=== PATIENT | female | born 1970 | race Caucasian/White ===

== ENCOUNTER 2019-10-11 06:00 | Outpatient (RCR) | payer OTHER, SELFPAY | END 2019-11-10 00:01 | LOC: MPT 06:00 | PROVIDERS: Family Provider Nurse Practitioner; Visit Provider Nurse Practitioner | DX: M25.511 Pain in right shoulder (principal) | CPT/HCPCS: 97110; 97140; G0283 ==

== ENCOUNTER 2019-11-11 13:30 | Outpatient (RCR) | payer OTHER, SELFPAY | END 2019-12-11 23:59 | disposition home or self-care (01) | LOC: MPT 13:30 | PROVIDERS: Family Provider Nurse Practitioner; PCP Nurse Practitioner; Visit Provider Nurse Practitioner | DX: M25.511 Pain in right shoulder (principal) ==